=== PATIENT | female | born 1990 | race American Indian/Alaskan Native ===

== ENCOUNTER 2017-02-17 08:34 | Emergency (ER) | payer SELFPAY ==
[2017-02-17 09:37] VITALS: BP 138/69
[2017-02-17 10:31] LABS: Bacteria,Urine 4+ /HPF (Negative); Bilirubin,Urine NEG (Negative); Blood,Urine NEG (Negative); Ketones,Urine TR mg/dL (Negative); Leukocyte Esterase,Urine LG (Negative); Mucus,Urine 3+ /HPF; Nitrite,Urine NEG (Negative)
[2017-02-17] MEDS ORDERED: MAGIC MOUTHWASH PO ONE (11:01)
[2017-02-17] MEDS ORDERED: DELTASONE PO ONE (11:01)
[2017-02-17] MEDS ORDERED: BICILLIN L-A IM ONE (11:01)
--- NOTE | 2017-02-17 11:13 | Emergency Department Report ---
HPI - General Chief Complaint: Pain General Time Seen by Provider: 02/17/17 10:29 - HPI HPI: Patient is a 26-year-old male who presents to ED complaining of throat pain 2 days. Patient describes pain as throbbing in nature, 8 out of 10 intensity, nonradiating, localized to his throat. Admits pain with swallowing and eating. Patient admits no appetite due to throat pain. Patient admits to me to fever for the first 2 days but not at the moment. Patient denies nausea/vomiting/cough/abdominal pain/shortness of breath/chest pain/headache. ED Past Medical Hx - Past Medical History Previous Medical History?: No - Surgical History Past Surgical History?: No - Medications Home Medications: Home Medications Medication Instructions Recorded Confirmed Last Taken Type Ibuprofen [Motrin] 600 mg PO Q8H PRN #20 tablet 02/17/17 Unknown Rx ED Review of Systems ROS: Stated complaint: FLU LIKE SYMPTOMS Other details as noted in HPI Constitutional: denies: chills, fever Eyes: denies: eye pain, eye discharge, vision change ENT: denies: ear pain, throat pain Respiratory: denies: cough, shortness of breath, wheezing Cardiovascular: denies: chest pain, palpitations Endocrine: no symptoms reported Gastrointestinal: denies: abdominal pain, nausea, diarrhea Genitourinary: denies: urgency, dysuria, discharge Musculoskeletal: denies: back pain, joint swelling, arthralgia Skin: denies: rash, lesions Neurological: denies: headache, weakness, paresthesias Psychiatric: denies: anxiety, depression Hematological/Lymphatic: denies: easy bleeding, easy bruising Physical Exam - Physical Exam Vital Signs: Vital Signs 02/17/17 09:33 Temperature 99.2 F Pulse Rate 103 H Respiratory 18 Rate Blood Pressure 138/69 O2 Sat by Pulse 98 Oximetry Physical Exam: GENERAL: Alert and oriented x3, no apparent distress, Normal Gait, atraumatic. HEAD: Head is normocephalic and a-traumatic. EARS: symetrical, atraumatic, non tender, ear canal clear and moderate cerumen, tympanic membrance non inflamed. gross auditory nml bilaterally. NOSE: Nose symetrical, Nontender,Nares appeared normal. MOUTH:Mouth is well hydrated and without lesions. Tonsil mildly erythematous and swollen, Uvula midline, Tongue not elevated. Mucous membranes are moist. Posterior pharynx clear, no exudate or lesions. Patent airways. NECK: Supple. Non edematous, anterior cervcal lymphadenopathy , no thyromegaly. No C-spine tenderness LUNGS: Symetrical with respiration, No wheezing, no rales or crackles, CTAB. HEART: S1, S2 present, regular rate and rhythm without murmur ABDOMEN: No organomegaly was noted,Positive bowel sounds, soft, and non- distended. . Nontender to palpation on all Quadrants, NO CVA tenderness. SKIN: Warm and dry, No lesions, No ulceration or induration present. ED Course Vital Signs 02/17/17 09:33 Temperature 99.2 F Pulse Rate 103 H Respiratory 18 Rate Blood Pressure 138/69 O2 Sat by Pulse 98 Oximetry ED Medical Decision Making - Medical Decision Making 26-year-old male presents with strep pharyngitis. ED course: Rapid strep tests ordered rapid strep test positive Patient received 1 dose of antibiotic mouthwash, 1.2 million units of penicillin , 60 mg of prednisone. Fever responsive to one dose of Tylenol. Vital signs stable patient is in no acute or respiratory distress. Discussed findings with patient about the positive strep. Discussed treatment in ED with patient Discussed the patient that strep throat is contagious and to limit sharing spoons and such. pt to be sent home on Motrin and a couple of days worth of prednisone. Discussed with patient follow-up with primary care physician. Patient verbally states he understands and will comply to follow-up. Critical care attestation.: If time is entered above; I have spent that time in minutes in the direct care of this critically ill patient, excluding procedure time. ED Disposition Clinical Impression: Strep pharyngitis Pharyngitis Qualifiers: Pharyngitis/tonsillitis etiology: streptococcus Qualified Code(s): J02.0 - Streptococcal pharyngitis Disposition: - TO HOME OR SELFCARE Is pt being admited?: No Does the pt Need Aspirin: No Condition: Stable Instructions: Strep Throat (ED), Tonsillitis (ED) Additional Instructions: Follow-up with primary care physician Take Motrin or Tylenol as needed for pain. Symptoms worsen this return to ED Prescriptions: Ibuprofen [Motrin] 600 mg PO Q8H PRN #20 tablet PRN Reason: Pain Referrals: PRIMARY CARE, [Primary Care Provider] - 3-5 Days [facility] [Outside] - 3-5 Days [facility] [Outside] - 3-5 Days [facility] [Outside] - 3-5 Days Forms: Accompanied Note, Work/School Release Form(ED) Time of Disposition: 12:21
== END 2017-02-17 12:35 | disposition home or self-care (01) ==
LOC: ED 08:34
DX: J02.0 Streptococcal pharyngitis (principal)
CPT/HCPCS: 81001; 81025; 87430; 96372; 99283; J0561; J7512

== ENCOUNTER 2017-10-13 07:01 | Emergency (ER) | payer OTHER ==
--- NOTE | 2017-10-13 08:29 | Emergency Department Report ---
ED Back Pain/Injury HPI - General Chief Complaint: Back Pain/Injury Stated Complaint: LOWER BACK PAIN Time Seen by Provider: 10/13/17 08:02 Source: patient Limitations: No Limitations - History of Present Illness Initial Comments: This is a 27-year-old -[place] female who presents with low back pain that is worse on the left for one day. Patient reports pain started yesterday while she was putting laundry in a bag. When she attempted to stand she felt a sharp pain that caused her to fall to the floor. Patient reports pain is 8 out of 10 and worse with movement. Patient states she has been chronic history of back pain and is increasing. 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 She does not recall any acute injury that would cause back pain. Denies loss of consciousness, numbness or tingling , nausea or vomiting, chest pain, and fever. MD Complaint: back pain Onset/Timin -: days(s) Similar Symptoms Previously: Yes (history of chronic back pain) Place: home Radiation: none Severity: moderate Severity scale (0 -10): 8 Quality: sharp, aching Consistency: intermittent Improves With: immobilization Worsens With: movement, walking Context: bending Associated Symptoms: denies other symptoms Treatments Prior to Arrival: NSAIDS - Related Data Previous Rx's Medication Instructions Recorded Last Taken Type Ibuprofen [Motrin] 600 mg PO Q8H PRN #20 tablet 02/17/17 Unknown Rx Ibuprofen [Motrin 600 MG tab] 600 mg PO Q8H PRN #15 tablet 10/13/17 Unknown Rx Tizanidine HCl [Zanaflex] 2 mg PO TID PRN #15 capsule 10/13/17 Unknown Rx Allergies Allergy/AdvReac Type Severity Reaction Status Date / Time No Known Allergies Allergy Unverified 02/17/17 09:33 ED Review of Systems ROS: Stated complaint: LOWER BACK PAIN Other details as noted in HPI Constitutional: denies: chills, fever Respiratory: denies: cough, shortness of breath, wheezing Cardiovascular: denies: chest pain, palpitations Gastrointestinal: denies: abdominal pain, nausea, diarrhea Genitourinary: denies: urgency, dysuria, discharge Musculoskeletal: back pain (low back pain worse on the). denies: joint swelling , arthralgia Skin: denies: rash, lesions Neurological: denies: headache, weakness, numbness, paresthesias Psychiatric: denies: anxiety, depression ED Back Pain Physical Exam - Exam General: Vital signs noted. No distress. Alert and acting appropriately. Back/Abdomen: Yes Sacroiliac Tenderness (tenderness on palpation above the left sacroiliac joint), No Abdominal Tenderness, No Perithoracic Tenderness, No Perilumbar Tenderness, No Flank Tenderness, No Straight Leg Raise Pain Neuro: Yes Normal Sensation, Yes Normal DTR's, Yes Normal Gait, No Motor Weakness ED Course Vital Signs 10/13/17 07:12 Temperature 98.5 F Pulse Rate 75 Respiratory 18 Rate Blood Pressure 127/69 O2 Sat by Pulse 99 Oximetry ED Medical Decision Making - Lab Data Lab Results 10/13/17 10/13/17 Range/Units 08:29 08:29 Urine Color Yellow (Yellow) Urine Turbidity Clear (Clear) Urine pH 6.0 (5.0-7.0) Ur Specific Emerson 1.008 (1.003-1.030) Urine Protein <15 mg/dl (Negative) mg/dL Urine Glucose (UA) Neg (Negative) mg/dL Urine Ketones Neg (Negative) mg/dL Urine Blood Neg (Negative) Urine Nitrite Neg (Negative) Urine Bilirubin Neg (Negative) Urine Urobilinogen < 2.0 (<2.0) mg/dL Ur Leukocyte Esterase Neg (Negative) Urine WBC (Auto) 1.0 (0.0-6.0) /HPF Urine RBC (Auto) 3.0 (0.0-6.0) /HPF U Epithel Cells (Auto) < 1.0 (0-13.0) /HPF Urine Mucus Few /HPF Urine HCG, Qual Negative (Negative) - Radiology Data Radiology results: report reviewed AP AND LATERAL LUMBOSACRAL SPINE: History: Low back pain, worse on left side. The vertebral bodies are well mineralized and normal in alignment and vertebral height with well preserved interspace distances. The visualized portions of the posterior elements are normal. IMPRESSION: Unremarkable lumbar spine. - Medical Decision Making This is a 27 y.o. female presents with low back pain for 1 day. Patient was examined by me. Vitals are normal and patient is in no acute distress. Obtained a urinalysis and x-ray of L-spine. Patient given tramadol 50 mg po once and dexamethasone 8 mg IM while in ER for pain. X-rays read by radiologist and no acute findings. Urinalysis and urine hcg obtained and normal. Patient informed of results. Start ibuprofen and cyclobenzaprine for muscle strain. Plan discussed with patient to discharge home and treat outpatient. Patient discharged home in stable condition. Referrals to orthopedic surgery. Follow up with PCP in 2-3 days Critical care attestation.: If time is entered above; I have spent that time in minutes in the direct care of this critically ill patient, excluding procedure time. ED Disposition Clinical Impression: Strain of muscle, fascia and tendon of lower back, initial encounter Low back pain Qualifiers: Chronicity: chronic Back pain laterality: left Sciatica presence: without sciatica Qualified Code(s): M54.5 - Low back pain Disposition: TO HOME OR SELFCARE Is pt being admited?: No Does the pt Need Aspirin: No Condition: Stable Instructions: Muscle Strain (ED), Acute Low Back Pain (ED), Arthralgia (ED) Additional Instructions: Rest Use ice or heat on affected area for 20 minutes and off for 2 hours. Take pain medication as needed for pain. Don't drive or operate heavy machinery while taking muscle relaxers because they may cause drowsiness. Follow up with Orthopedic Surgery for management of chronic back pain. Follow up with Primary Care Provider in 2-3 days. Prescriptions: Ibuprofen [Motrin 600 MG tab] 600 mg PO Q8H PRN #15 tablet PRN Reason: Pain Tizanidine HCl [Zanaflex] 2 mg PO TID PRN #15 capsule PRN Reason: Muscle Spasm Referrals: MUKUND SANTIAGO MD [Staff Physician] - 3-5 Days [facility] [Provider Group] - 3-5 Days [facility] [Outside] - 3-5 Days [facility] [Outside] - 3-5 Days Time of Disposition: 09:53 Print Language: FILIPINO
[2017-10-13 08:41] VITALS: BP 120/75
[2017-10-13 08:46] LABS: HCG Qualitative,Urine Negative (Negative)
--- NOTE | 2017-10-13 09:25 | XRay Report ---
AP AND LATERAL LUMBOSACRAL SPINE: History: Low back pain, worse on left side. The vertebral bodies are well mineralized and normal in alignment and vertebral height with well preserved interspace distances. The visualized portions of the posterior elements are normal. IMPRESSION: Unremarkable lumbar spine.
[2017-10-13] MEDS ORDERED: ULTRAM PO ONE (09:48)
[2017-10-13] MEDS ORDERED: DECADRON IM ONE (09:49)
[2017-10-13 09:52] LABS: Bilirubin,Urine NEG (Negative); Blood,Urine NEG (Negative); Color,Urine Yellow (Yellow); Mucus,Urine FEW /HPF; Protein,Urine <15 mg/dL mg/dL (Negative); Urobilinogen,Urine < 2.0 mg/dL (<2.0)
== END 2017-10-13 10:26 | disposition home or self-care (01) ==
LOC: ED 07:01
DX: S39.012A Strain of muscle, fascia and tendon of lower back, initial encounter (principal); G89.29 Other chronic pain; X50.1XXA Overexertion from prolonged static or awkward postures, initial encounter; Y93.89 Activity, other specified; Y99.8 Other external cause status; Y92.019 Unspecified place in single-family (private) house as the place of occurrence of the external cause
CPT/HCPCS: 72100; 81001; 81025; 96372; 99283; J1100